=== PATIENT | female | born 1970 | race Hispanic/Latino ===

== ENCOUNTER → 2016-08-27 | Outpatient (CLI) | payer OTHER ==
[~2016-08-27] MED LIST: COLLAGEN PLUS1 EACH PO; FA-80.8 MG PO; IRON325 M1 PO; PERCOCET 5/31 TABLET PO; RANITIDINE HCL150 MG PO; ULTRAM50 MG PO
== END | disposition home or self-care (01) ==
LOC: RAD 10:11
DX: M17.11 Unilateral primary osteoarthritis, right knee (principal); M25.562 Pain in left knee
CPT/HCPCS: 73560

== ENCOUNTER 2016-11-25 05:26 | Day surgery (SDC) | payer OTHER ==
[~2016-11-25] VITALS: Ht 167.6 cm; Wt 81.6 kg
[~2016-11-25 05:26] MED LIST changes: +MEGACE20 MG PO
[2016-11-25 06:22] VITALS: BP 132/88
[2016-11-25 14:40] LABS: HEMATOCRIT 36.6 % (36.0-46.0); MCV 92.9 FL (83-99)
[2016-11-25 16:18] VITALS: BP 127/77
[2016-11-25 19:35] VITALS: BP 116/72
[2016-11-26 00:06] VITALS: BP 127/65
[2016-11-26 04:13] VITALS: BP 130/62
[2016-11-26 06:10] LABS: EOSINOPHIL (%) 0.2 % (0-5); HEMATOCRIT 33.6 % (36.0-46.0); IMMATURE GRANULOCYTE (%) 0.3 % (0.0-0.7); INSTRUMENT ABS NEUTROPHIL CT 7.4 K/uL; LYMPHOCYTE COUNT 1.2 K/uL (1.0-2.8); MCHC 32.4 G/DL (30.0-36.0); MCV 92.6 FL (83-99); MONOCYTE (%) 4.5 % (3-12); MONOCYTE COUNT 0.4 K/uL (0-0.8); NEUTROPHIL (%) 81.9 % (45-76); NEUTROPHIL COUNT 7.4 K/uL (1.8-6.4); PLATELET COUNT 226 K/uL (156-360); RBC DIS.WIDTH-CV 14.9 % (11.8-14.6); RBC DIS.WIDTH-SD 50.3 % (39-53); RED BLOOD COUNT 3.63 M/uL (3.80-5.20)
[2016-11-26 06:18] LABS: WHITE BLOOD COUNT 9.1 K/uL (4.1-10.2)
[2016-11-26 06:37] LABS: CHLORIDE 107 MEQ/L (99-109); GFR ESTIMATE (CALCULATED) > 59 mL/min/; GLUCOSE 129 mg/dL (70-99); SAMPLE HEMOLYSIS CHECK 0; SAMPLE ICTERIC CHECK 0; SAMPLE LIPEMIA CHECK 0; SODIUM 138 MEQ/L (136-147); UREA NITROGEN (BUN) 14 mg/dL (9-23)
[2016-11-26 06:38] LABS: ANION GAP 7 MEQ/L (2-14)
[2016-11-26 07:20] VITALS: BP 101/55
[2016-11-26 12:15] VITALS: BP 103/61
== END 2016-11-26 14:31 | disposition home or self-care (01) ==
LOC: SDC → 2SOUTH 12:00 → 2EASTP 16:13
PROVIDERS: Anesthesiology; Obstetrics & Gynecology Gynecology
PROC: 0UT94ZZ Resection of Uterus, Percutaneous Endoscopic Approach (ICD-10-PCS; principal; 2016-11-25)
PROC: 0UT74ZZ Resection of Bilateral Fallopian Tubes, Percutaneous Endoscopic Approach (ICD-10-PCS; principal; 2016-11-25)
PROC: 0TJB8ZZ Inspection of Bladder, Via Natural or Artificial Opening Endoscopic (ICD-10-PCS; principal; 2016-11-25)
PROC: 0UTC4ZZ Resection of Cervix, Percutaneous Endoscopic Approach (ICD-10-PCS; principal; 2016-11-25)
DX: D25.9 Leiomyoma of uterus, unspecified (principal); D50.9 Iron deficiency anemia, unspecified; N94.6 Dysmenorrhea, unspecified; E66.9 Obesity, unspecified; Z68.30 Body mass index [BMI] 30.0-30.9, adult; K21.9 Gastro-esophageal reflux disease without esophagitis; N92.1 Excessive and frequent menstruation with irregular cycle; Z83.79 Family history of other diseases of the digestive system; Z87.891 Personal history of nicotine dependence
CPT/HCPCS: 74000; 80048; 85014; 85018; 85025; 87086; 88302; 88307; G0378; J0131; J0690; J1100; J1170; J1644; J1885; J1940; J2250; J2405; J2710; J2765; J3010; J7040; J7120